=== PATIENT | female | born 1990 | race Hispanic/Latino ===

== ENCOUNTER → 2023-10-08 15:27 | Outpatient (REF) | payer OTHER, SELFPAY | LOC: CLINIC 15:27 | PROVIDERS: ATTENDING PHYSICIAN Nurse Practitioner Adult Health | DX: Z12.31 Encounter for screening mammogram for malignant neoplasm of breast (principal) | CPT/HCPCS: 77063; 77067 ==

== ENCOUNTER → 2023-10-16 09:23 | Outpatient (REF) | payer OTHER, SELFPAY | LOC: WDC 09:23 | PROVIDERS: ATTENDING PHYSICIAN Nurse Practitioner Adult Health | DX: R92.8 Other abnormal and inconclusive findings on diagnostic imaging of breast (principal) | CPT/HCPCS: 76642 ==